=== PATIENT | female | born 1970 | race Two or more races ===

== ENCOUNTER 2016-06-16 18:26 | Emergency (ER) | payer OTHER ==
[2016-06-16 18:48] VITALS: BP 139/85; PULSE 89; TEMP 97.9
--- NOTE | 2016-06-16 19:09 | PDOC ---
History of Present Illness <Nicole Stiles - Last Filed: 06/16/16 21:20> - General History Source: Patient Exam Limitations: No Limitations - History of Present Illness Initial Comments: 06/16/16 19:24 Chief complaint: Lower back pain sudden onset when bending over History of present illness: Patient is a 45-year-old female with no significant medical problems here today complaining of sudden onset of lower back pain that occurred when she was bending over patient felt a pain radiating across her lower back. Patient reports that she's had difficulty standing up straight and pain is worse with movement. Patient took ibuprofen at 3:00 2 tabs of 600 mg without relief of pain. Patient feels as if muscles spasm worse on right lower back than left. Patient denies any radiation of pain down the legs or numbness of legs or any saddle anesthesia or incontinency. Patient reports that pain currently is an 8 out of 10 with movement. Patient denies any pain with sitting and wheelchair or on bed. She reports having similar incident over 20 years ago with her lower back. 06/16/16 19:45 Occurred: reports: this afternoon Severity: reports: moderate Pain Location: reports: back (lower back ) Method of Injury: Yes: other (bending over from waist) Modifying Factors: improves with: None, immobilization, other (sitting still) <Juana Mak - Last Filed: 06/17/16 11:27> - General Chief Complaint: Back Pain Stated Complaint: BACK PAIN Time Seen by Provider: 06/16/16 19:09 Past History <Nicole Stiles - Last Filed: 06/16/16 21:20> - Psycho/Social/Smoking Cessation Hx Anxiety: No Suicidal Ideation: No Smoking History: Current some day smoker Have you smoked in the past 12 months: Yes Number of Cigarettes Smoked Daily: 2 Information on smoking cessation initiated: No Hx Alcohol Use: No Drug/Substance Use Hx: No Substance Use Type: None <Juana Mak - Last Filed: 06/17/16 11:27> - Past Medical History Allergies/Adverse Reactions: Allergies Allergy/AdvReac Type Severity Reaction Status Date / Time No Known Allergies Allergy Verified 06/16/16 18:48 Home Medications: Ambulatory Orders Cyclobenzaprine HCl [Flexeril 10 mg] 10 mg PO BID PRN #10 tablet 06/16/16 Review of Systems - Review of Systems Able to Perform ROS?: Yes Constitutional: No: Symptoms Reported HEENTM: No: Symptoms Reported Respiratory: No: Symptoms reported Cardiac (ROS): No: Symptoms Reported ABD/GI: No: Symptoms Reported : No: Symptoms Reported Musculoskeletal: Yes: Back Pain (lower b/l ), Muscle Pain (lower back lumbar b/ l ) Integumentary: No: Symptoms Reported Neurological: No: Symptoms reported <Juana Mak - Last Filed: 06/17/16 11:27> *Physical Exam - Vital Signs Last Vital Signs Temp Pulse Resp BP Pulse Ox 97.9 F 89 19 139/85 99 06/16/16 18:45 06/16/16 18:45 06/16/16 18:45 06/16/16 18:45 06/16/16 18:45 <Nicole Stiles - Last Filed: 06/16/16 21:20> - Vital Signs Last Vital Signs Temp Pulse Resp BP Pulse Ox 97.9 F 89 19 139/85 99 06/16/16 18:45 06/16/16 18:45 06/16/16 18:45 06/16/16 18:45 06/16/16 18:45 - Physical Exam General Appearance: Yes: Appropriately Dressed Respiratory/Chest: positive: Lungs Clear, Normal Breath Sounds. negative: Chest Tender, Respiratory Distress Cardiovascular: positive: Regular Rhythm, Regular Rate, S1, S2 Musculoskeletal: positive: Decreased Range of Motion (from waist ), Muscle Spasm (paraspinal muscle b/l lumbar tenderness worse on rt. ). negative: Normal Inspection, CVA Tenderness, CVA Tenderness (R), CVA Tenderness (L) Extremity: positive: Normal Capillary Refill, Normal Inspection, Normal Range of Motion Integumentary: positive: Normal Color Neurologic: positive: Alert, Motor Strength 5/5 (legs b/l ), Respond to painful stimul (b/l legs ), Responsive. negative: Numbness, Sensory Deficit (legs ) <ObdulioJuana - Last Filed: 06/17/16 11:27> ED Treatment Course - Medications Given in the ED: ED Medications Discontinued Medications Generic Name Dose Route Start Last Admin Trade Name Freq PRN Reason Stop Dose Admin Cyclobenzaprine HCl 5 mg 06/16/16 20:48 06/16/16 20:52 Flexeril - PO 03/05/17 20:49 5 mg ONCE ONE Administration Diazepam 5 mg 06/16/16 19:20 06/16/16 19:30 Valium - PO 06/16/16 19:21 5 mg ONCE ONE Administration Oxycodone/Acetaminophen 1 combo 06/16/16 20:48 06/16/16 20:52 Percocet 5/325 - PO 06/16/16 20:49 1 combo ONCE ONE Administration <Nicole Stiles - Last Filed: 06/16/16 21:20> Medical Decision Making - Medical Decision Making 06/16/16 19:26 Patient is a 45-year-old female with no significant medical problems here today complaining of sudden onset of lower back pain that occurred when she was bending over patient felt a pain radiating across her lower back. Patient reports that she's had difficulty standing up straight and pain is worse with movement. Patient took ibuprofen at 3:00 2 tabs of 600 mg without relief of pain. Patient feels as if muscles spasm worse on right lower back than left. Patient denies any radiation of pain down the legs or numbness of legs or any saddle anesthesia or incontinency. Patient reports that pain currently is an 8 out of 10 with movement. Patient denies any pain with sitting and wheelchair or on bed. Pt. denies any change of pregnany is control. lower back strain with muscle spasm worse on rt.side PLAN: valium 5 mg po now pt. signed out to Nicole Stiles [employer]RA[employer] 06/16/16 19:49 06/17/16 11:26 06/17/16 11:26 <Juana Mak - Last Filed: 06/17/16 11:27> *DC/Admit/Observation/Transfer <Nicole Stiles - Last Filed: 06/16/16 21:20> <Juana Mak - Last Filed: 06/17/16 11:27> Diagnosis at time of Disposition: Muscle spasm of back Low back strain Qualifiers: Encounter type: initial encounter Qualified Code(s): S39.012A - Strain of muscle, fascia and tendon of lower back, initial encounter - Discharge Dispostion Disposition: HOME Condition at time of disposition: Stable - Prescriptions Prescriptions: Cyclobenzaprine HCl [Flexeril 10 mg] 10 mg PO BID PRN #10 tablet PRN Reason: Back Pain - Referrals Referrals: Arthur Ernst [Primary Care Provider] - Kd Castaneda MD [Staff Physician] - - Patient Instructions Additional Instructions: Avoid any strenuous activities or exercise avoid bending over Return to emergency room if worsening of pain or any numbness of legs or groin Follow-up with orthopedist within the next few days if pain continues Patient voiced understanding of discharge instructions and all questions were answered - Post Discharge Activity Work/School Note: Back to Work
[2016-06-16] MEDS ORDERED: diazePAM 5 MG TABLET PO ONE (19:20)
[2016-06-16] MEDS ORDERED: diazePAM 5 MG TABLET ONE (19:29)
[2016-06-16] MEDS ORDERED: CYCLOBENZAPRINE HCL 10 MG TABLET (FP) PO ONE (20:48)
[2016-06-16] MEDS ORDERED: OXYCODONE/APAP 5/325MG COMBO TABLET PO ONE (20:48)
[2016-06-16] MEDS ORDERED: CYCLOBENZAPRINE HCL 10 MG TABLET (FP) ONE (20:50)
--- NOTE | 2016-06-16 20:50 | PDOC ---
*Physical Exam - Vital Signs Last Vital Signs Temp Pulse Resp BP Pulse Ox 97.9 F 89 19 139/85 99 06/16/16 18:45 06/16/16 18:45 06/16/16 18:45 06/16/16 18:45 06/16/16 18:45 ED Treatment Course - Medications Given in the ED: ED Medications Discontinued Medications Generic Name Dose Route Start Last Admin Trade Name Freq PRN Reason Stop Dose Admin Diazepam 5 mg 06/16/16 19:20 06/16/16 19:30 Valium - PO 06/16/16 19:21 5 mg ONCE ONE Administration Medical Decision Making - Medical Decision Making 06/16/16 20:49 Patient states Valium does not work in the past and has had to take Flexeril for discomfort which did alleviate her pain twice in the past. Patient will be given a dose of Flexeril and a Percocet. Patient's Valium prescription canceled and Flexeril was added *DC/Admit/Observation/Transfer Diagnosis at time of Disposition: Muscle spasm of back Low back strain Qualifiers: Encounter type: initial encounter Qualified Code(s): S39.012A - Strain of muscle, fascia and tendon of lower back, initial encounter - Prescriptions Prescriptions: Cyclobenzaprine HCl [Flexeril 10 mg] 10 mg PO BID PRN #10 tablet PRN Reason: Back Pain - Referrals Referrals: Cyrus Edmonds MD [Staff Physician] - Arthur Ernst [Primary Care Provider] - - Patient Instructions Additional Instructions: Avoid any strenuous activities or exercise avoid bending over Return to emergency room if worsening of pain or any numbness of legs or groin Follow-up with orthopedist within the next few days if pain continues Patient voiced understanding of discharge instructions and all questions were answered - Post Discharge Activity
[2016-06-16] MEDS ORDERED: OXYCODONE/APAP 5/325MG COMBO TABLET ONE (20:51)
== END 2016-06-16 20:57 | disposition home or self-care (01) ==
LOC: JERFT 18:26
DX: S39.012A Strain of muscle, fascia and tendon of lower back, initial encounter (principal); M62.830 Muscle spasm of back; X50.0XXA Overexertion from strenuous movement or load, initial encounter; X50.9XXA Other and unspecified overexertion or strenuous movements or postures, initial encounter; Y93.89 Activity, other specified; Y92.89 Other specified places as the place of occurrence of the external cause
CPT/HCPCS: 99281-25